=== PATIENT | female | born 1955 | race Caucasian/White ===

== ENCOUNTER 2017-03-11 07:23 | Emergency (ER) | payer OTHER ==
[2017-03-11 07:29] VITALS: O2SAT 95
--- NOTE | 2017-03-11 07:39 | EDPHY ---
H & P Stated Complaint: Poss insect bite R eyelid; swelling x 2 days Time Seen by Provider: 03/11/17 07:38 - Personal History Current Tetanus Diphtheria and Acellular Pertussis (TDAP): Unsure - Medical/Surgical History Hx Asthma: No Hx Chronic Respiratory Disease: No Hx Diabetes: No Hx Cardiac Disease: No Hx Renal Disease: No Hx Cirrhosis: No Hx Alcoholism: No Hx HIV/AIDS: No Hx Splenectomy or Spleen Trauma: No Other PMH: Med hx-insomnia,depression,seizure, encephalitis in 1974. Surg-cyst to tailbone,ovaries - Social History Smoking Status: Current every day smoker Constitutional: Initial Vital Signs Temperature (C) 37 C 03/11/17 07:25 Heart Rate 65 03/11/17 07:25 Respiratory Rate 16 03/11/17 07:25 Blood Pressure 110/72 03/11/17 07:25 O2 Sat (%) 95 03/11/17 07:25 O2 Delivery Mode Room Air Allergies/Adverse Reactions: No Known Allergies Allergy (Verified 03/11/17 07:24) Home Medications: Medication Instructions Recorded QUEtiapine FUMARATE 01/20/16 Eszopiclone 08/27/16 FLUoxetine 08/27/16 Lamotrigine 08/27/16 Ofloxacin 0.3% [Ocuflox 0.3%] 2 drops OP QID #1 opht.btl 03/11/17 Medical Decision Making ED Course/Re-evaluation: CHIEF COMPLAINT: Swollen right eyelid HISTORY OF PRESENT ILLNESS: This patient is a 61 year old female complaining of painful, swollen right eyelid worsening over the last two days. Two days ago, she states she developed pain above her right eye, and yesterday noted the eyelid had become swollen and red. She denies changes in vision or discharge from the eye. She denies fever, vomiting, diarrhea, headache, or other associated symptoms. REVIEW OF SYSTEMS: A 10 point review of systems was performed and is negative with the exception of the elements mentioned in the history of present illness. PHYSICAL EXAM: HR, BP, O2 Sat, RR. Temp noted General Appearance: Alert, well hydrated, appropriate, and non-toxic appearing. Head: Atraumatic without scalp tenderness or obvious injury Eyes: Meibomian gland cyst, erythema and edema to upper lid. Pupils equal, round , reactive to light and accommodation, EOMI, no trauma, no injection. Ears: Clear bilaterally, no perforation, normal landmarks Nose: Atraumatic, no rhinorrhea, clear. Throat: Mucus membranes moist. Neck: Supple, nontender Respiratory: No retractions, no distress, no wheezes, and no accessory muscle use. Cardiovascular: Regular rate and rhythm. Good capillary refill all extremities. Gastrointestinal: Abdomen is soft, nontender, non-distended. Musculoskeletal: Normal active ROM of all extremities, atraumatic. Neurological: Alert, appropriate, and interactive. Nonfocal neuro exam. Skin: No rashes, good turgor, no nodules on palpation. Past medical history: Herpes encephalitis, tempora lobe damage, kidney stones, history of seizures, osteoporosis Past surgical history: Ovarian surgery, tailbone cyst removal Family history: Noncontributory Social history: Lives in [place]. DIFFERENTIAL DIAGNOSIS: Includes but not limited to: meibomian gland cyst, blepharitis, stye. MEDICAL DECISION MAKING: This patient is a 61 year old female presenting with swollen erythematous upper right eyelid onset two days ago. Physical exam reveals meibomian gland cyst to the upper right eyelid. Plan to discharge home in good condition with prescription for Ocuflox drops. Followup and return precautions discussed. The patient is comfortable with this plan. Departure - Departure Disposition: Home, Routine, Self-Care Clinical Impression: Meibomian cyst Qualifiers: Laterality: right Eyelid: upper Qualified Code(s): H00.11 - Chalazion right upper eyelid Condition: Good Instructions: Lisa (ED) Additional Instructions: 1. Use your Ocuflox antibiotic eye drops in your affected eye as prescribed. It is important that you finish your entire course of antibiotics. 2. You may take 200-400mg of ibuprofen every 6-8 hours with food or 650mg Tylenol every 4-6 hours to reduce discomfort. 3. Follow up with your primary care provider or symptoms unresolved in the next 3-5 days. 4. Return to the Emergency Department if you develop changes in your vision, redness of discharge of your eye, or other worsening of condition. Referrals: Gisele Gómez MD [Primary Care Provider] - As per Instructions Prescriptions: Ofloxacin 0.3% [Ocuflox 0.3%] 2 drops OP QID #1 opht.btl Report Scribed for: Kilo A Sofia Report Scribed by: Megha Delvalle Date of Report: 03/11/17 Time of Report: 07:44
[2017-03-11 08:24] VITALS: BP 112/67; PULSE 81; RESP 18; TEMP 97.9
== END 2017-03-11 08:24 | disposition home or self-care (01) ==
DX: H00.11 Chalazion right upper eyelid (principal); F17.200 Nicotine dependence, unspecified, uncomplicated

== ENCOUNTER 2017-05-11 00:11 | Emergency (ER) | payer OTHER ==
[2017-05-11] MEDS ORDERED: HYDROCOD/APAP 5/325 PREPACK#6 BTL TAKEHOME ONE (00:52)
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
[2017-05-11 01:14] VITALS: BP 145/81; PULSE 78; RESP 14; TEMP 97.7; O2SAT 99
== END 2017-05-11 01:05 | disposition home or self-care (01) ==
LOC: CED 00:11
PROC: 3E0X3CZ (ICD-10-PCS; principal; 2017-05-11)
DX: K08.89 Other specified disorders of teeth and supporting structures (principal); F17.200 Nicotine dependence, unspecified, uncomplicated

== ENCOUNTER 2017-06-09 15:24 | Emergency (ER) | payer OTHER ==
[2017-06-09 15:38] VITALS: BP 119/57; PULSE 80; RESP 16; TEMP 99; O2SAT 97
[2017-06-09 15:43] LABS: COLOR YELLOW; LEUKOCYTE ESTERASE,URINE 2+ (NEGATIVE); NITRITE,URINE NEGATIVE (NEGATIVE); PH,URINE 6.5 (5.0-7.5)
[2017-06-09 15:52] LABS: BACTERIA 2+ /hpf (NONE SEEN); MUCUS 1+ /lpf (NONE-1+); RBC,URINE 50-182 /hpf (0-3); WBC,URINE 15-25 /hpf (0-3)
--- NOTE | 2017-06-09 15:55 | EDPHY ---
H & P Time Seen by Provider: 06/09/17 15:31 HPI/ROS: 61-year-old female presents complaining of burning with urination x1 day. Review of systems As per HPI General no fever no chills no weakness HEENT no eye pain no eye discharge. No eye redness, no sore throat Respiratory no cough, no shortness of breath Cardiac no chest pain, no peripheral edema GI no abdominal pain, no diarrhea, no constipation, no nausea, no vomiting no flank pain, no hematuria, positive dysuria Musculoskeletal no myalgias, no joint pain Heme no easy bruising, no easy bleeding Endo no polyuria, no polydipsia Skin no rashes, no pruritus Neuro no syncope, no dizziness, no headaches Psych is no suicidal ideation, no homicidal ideation Past Medical/Surgical History: Depression Social History: Denies alcohol or drug use Smoking Status: Current every day smoker Physical Exam: 61-year-old female Female alert and oriented in no acute distress nontoxic appearance, afebrile Atraumatic normocephalic Neck supple Lungs clear to auscultation bilaterally Heart regular rate and rhythm Abdomen normoactive bowel sounds soft mild suprapubic tenderness no guarding no rebound Back no CVA tenderness Extremities no cyanosis clubbing or edema Skin no rash Constitutional: Initial Vital Signs Temperature (C) 37.2 C 06/09/17 15:37 Heart Rate 80 06/09/17 15:37 Respiratory Rate 16 06/09/17 15:37 Blood Pressure 119/57 L 06/09/17 15:37 O2 Sat (%) 97 06/09/17 15:37 O2 Delivery Mode Room Air Allergies/Adverse Reactions: No Known Allergies Allergy (Verified 06/09/17 15:36) Home Medications: Medication Instructions Recorded QUEtiapine FUMARATE 01/20/16 Eszopiclone 08/27/16 FLUoxetine 08/27/16 Lamotrigine 08/27/16 Cephalexin 500 mg PO TID #14 tablet 06/09/17 Phenazopyridine HCl 200 mg PO TID #6 tab 06/09/17 [Phenazopyridine] Medical Decision Making ED Course/Re-evaluation: Patient seen and evaluated for dysuria Urinalysis positive for WBC, RBC, bacteria, nitrate and leuk esterase Impression UTI Plan Cephalexin, peridium, PCP - Data Points Laboratory Results: 06/09/17 15:35 Urine Color YELLOW Urine Appearance HAZY Urine pH 6.5 (5.0-7.5) Ur Specific [place] 1.020 (1.002-1.030) Urine Protein TRACE H (NEGATIVE) Urine Ketones NEGATIVE (NEGATIVE) Urine Blood 3+ H (NEGATIVE) Urine Nitrate NEGATIVE (NEGATIVE) Urine Bilirubin NEGATIVE (NEGATIVE) Urine Urobilinogen 1.0 EU EU (0.2-1.0) Ur Leukocyte Esterase 2+ H (NEGATIVE) Urine RBC 50-182 /hpf H /hpf (0-3) Urine WBC 15-25 /hpf H /hpf (0-3) Ur Epithelial Cells TRACE /lpf /lpf (NONE-1+) Urine Bacteria 2+ /hpf H /hpf (NONE SEEN) Urine Mucus 1+ /lpf /lpf (NONE-1+) Urine Glucose NEGATIVE (NEGATIVE) Departure - Departure Disposition: Home, Routine, Self-Care Clinical Impression: Urinary tract infection Condition: Good Instructions: Urinary Tract Infection in Women (ED) Referrals: Gisele Gómez MD [Primary Care Provider] - As per Instructions Prescriptions: Cephalexin 500 mg PO TID #14 tablet Phenazopyridine HCl [Phenazopyridine] 200 mg PO TID #6 tab
== END 2017-06-09 16:06 | disposition home or self-care (01) ==
LOC: CED 15:24
DX: N39.0 Urinary tract infection, site not specified (principal); B96.89 Other specified bacterial agents as the cause of diseases classified elsewhere; F17.200 Nicotine dependence, unspecified, uncomplicated
CPT/HCPCS: 81003-PO; 81015-PO

== ENCOUNTER 2017-08-04 10:49 | Emergency (ER) | payer OTHER ==
--- NOTE | 2017-08-04 10:54 | EDPHY ---
H & P Time Seen by Provider: 08/04/17 10:50 HPI/ROS: CHIEF COMPLAINT: "I have a bladder infection " HISTORY OF PRESENT ILLNESS: This is a 61-year-old female with history of bladder infections who presents with dysuria, urgency, and frequency that began yesterday. These symptoms have increased since their onset. She denies fever or back pain. She has not had vomiting or diarrhea. She is not experiencing abdominal pain. REVIEW OF SYSTEMS: A ten point review of systems was performed and is negative with the exception of the items mentioned in the HPI. Past medical history: Herpes encephalitis in 1973 Past surgical history: Removal of skin cancer from left leg Meibomian cyst removal Social history: No tobacco use. She is single. She is disabled. General Appearance: Alert. Vital signs reviewed. Heart rate 103 at triage. Eyes: Pupils equal and round, no conjunctival injection, no discharge. Anicteric. Respiratory: Lungs are clear to auscultation; no wheezes, rales, or rhonchi. Cardiovascular: Regular rate and rhythm; no murmur, rub, or gallop. Not tachycardic at time of my exam. Gastrointestinal: Abdomen is soft and nontender, no masses or organomegaly, bowel sounds normal. Skin: Warm and dry, no rashes on exposed skin, normal color. Back: Nontender to palpation over the thoracolumbar spine. No CVAT. Extremities: No lower extremity edema, no calf tenderness or swelling. Neurological: Alert and oriented. Moving all four extremities easily and equally. Psychiatric: Normal affect. - Medical/Surgical History Hx Asthma: No Hx Chronic Respiratory Disease: No Hx Diabetes: No Hx Cardiac Disease: No Hx Renal Disease: No Hx Cirrhosis: No Hx Alcoholism: No Hx HIV/AIDS: No Hx Splenectomy or Spleen Trauma: No Other PMH: Med hx-insomnia,depression,seizure, encephalitis in 1974. Surg-cyst to tailbone,oophrectomy. - Social History Smoking Status: Current every day smoker Constitutional: Initial Vital Signs Temperature (C) 37 C 08/04/17 10:59 Heart Rate 103 H 08/04/17 10:59 Respiratory Rate 16 08/04/17 10:59 Blood Pressure 109/70 08/04/17 10:59 O2 Sat (%) 94 08/04/17 10:59 O2 Delivery Mode Room Air Allergies/Adverse Reactions: No Known Allergies Allergy (Verified 08/04/17 10:52) Home Medications: Medication Instructions Recorded QUEtiapine FUMARATE 01/20/16 Eszopiclone 08/27/16 FLUoxetine 08/27/16 Lamotrigine 08/27/16 Cephalexin 500 mg PO TID #14 tablet 06/09/17 Phenazopyridine HCl 200 mg PO TID #6 tab 06/09/17 [Phenazopyridine] Nitrofurantoin Macrobid [Macrobid] 100 mg PO BID #10 cap 08/04/17 Phenazopyridine HCl [Pyridium] 200 mg PO TID #6 tab 08/04/17 Medical Decision Making ED Course/Re-evaluation: Urinalysis is positive for leukocyte esterase, nitrates, blood, and bacteria. A CT In the past she has had E coli urinary tract infections that are pansensitive. I am prescribing nitrofurantoin 100 mg PO BID for five days. Return precautions reviewed. She will FU with her PCP as needed. Differential Diagnosis: I considered a differential diagnosis that includes but is not limited to urinary tract infection, pyelonephritis, ureterolithiasis, and appendicitis. - Data Points Laboratory Results: 08/04/17 11:00 Urine Color YELLOW Urine Appearance HAZY Urine pH 6.0 (5.0-7.5) Ur Specific [place] 1.025 (1.002-1.030) Urine Protein 1+ H (NEGATIVE) Urine Ketones NEGATIVE (NEGATIVE) Urine Blood 3+ H (NEGATIVE) Urine Nitrate POSITIVE H (NEGATIVE) Urine Bilirubin NEGATIVE (NEGATIVE) Urine Urobilinogen 0.2 EU EU (0.2-1.0) Ur Leukocyte Esterase 1+ H (NEGATIVE) Urine RBC >182 /hpf H /hpf (0-3) Urine WBC 25-50 /hpf H /hpf (0-3) Ur Epithelial Cells 1+ /lpf /lpf (NONE-1+) Amorphous Sediment 1+ /hpf /hpf (NONE-1+) Urine Bacteria 1+ /hpf H /hpf (NONE SEEN) Urine Mucus TRACE /lpf /lpf (NONE-1+) Urine Glucose NEGATIVE (NEGATIVE) Departure - Departure Disposition: Home, Routine, Self-Care Clinical Impression: Urinary tract infection Qualifiers: Urinary tract infection type: acute cystitis Hematuria presence: with hematuria Qualified Code(s): N30.01 - Acute cystitis with hematuria Condition: Good Instructions: Urinary Tract Infection in Women (ED) Referrals: Gisele Gómez MD [Primary Care Provider] - As per Instructions Prescriptions: Nitrofurantoin Macrobid [Macrobid] 100 mg PO BID #10 cap Phenazopyridine HCl [Pyridium] 200 mg PO TID #6 tab
[2017-08-04 11:05] VITALS: BP 109/70; PULSE 103; RESP 16; TEMP 98.6; O2SAT 94
[2017-08-04 11:10] LABS: LEUKOCYTE ESTERASE,URINE 1+ (NEGATIVE); NITRITE,URINE POSITIVE (NEGATIVE)
[2017-08-04 11:15] LABS: COLOR YELLOW
[2017-08-04 11:16] LABS: WBC,URINE 25-50 /hpf (0-3)
[2017-08-04 11:17] LABS: AMORPHOUS 1+ /hpf (NONE-1+); BACTERIA 1+ /hpf (NONE SEEN); MUCUS TRACE /lpf (NONE-1+); RBC,URINE >182 /hpf (0-3)
== END 2017-08-04 11:30 | disposition home or self-care (01) ==
LOC: CED 10:49
DX: N30.01 Acute cystitis with hematuria (principal); B96.89 Other specified bacterial agents as the cause of diseases classified elsewhere; F17.200 Nicotine dependence, unspecified, uncomplicated; Z85.828 Personal history of other malignant neoplasm of skin
CPT/HCPCS: 81003-PO; 81015-PO

== ENCOUNTER → 2018-01-15 | Outpatient (CLI) | payer OTHER | LOC: FIMAGING 09:51 | PROVIDERS: ATTEND Family Medicine | DX: Z13.820 Encounter for screening for osteoporosis (principal); M81.0 Age-related osteoporosis without current pathological fracture; Z79.899 Other long term (current) drug therapy; Z78.0 Asymptomatic menopausal state ==

== ENCOUNTER 2018-01-26 17:20 | Emergency (ER) | payer OTHER ==
[2018-01-26] MEDS ORDERED: CEPHALEXIN 500MG PREPACK#4 BTL TAKEHOME ONE (17:59)
--- NOTE | 2018-01-26 17:59 | EDPHY ---
H & P Time Seen by Provider: 01/26/18 17:39 HPI/ROS: Chief complaint. Burning with urination HPI. 62-year-old female with 1 day history of burning with urination urinary frequency and urgency. Symptoms are worse this afternoon. Suprapubic discomfort but no flank tenderness. No fever vomiting. Similar symptoms previously. No chest discomfort or trouble breathing. ROS Constitutional. no fever/chills, no weakness Eyes. no problems with vision ENT. no sore throat, no nasal drainage Cardiovascular. no chest pain Respiratory. no shortness of breath, no cough Abdominal. no abdominal pain, no nausea/vomiting, no diarrhea . Urinary frequency and dysuria MS. no calf pain/swelling, no neck/back pain, no joint pain Skin. no rash Lymph. no swollen glands Neuro. no headache, no dizziness, no difficulty walking or with speech Past Medical/Surgical History: UTI, herpes encephalitis, skin cancer Social History: Single, daily smoker, no alcohol Smoking Status: Current every day smoker Physical Exam: General Appearance: Alert pleasant well-developed female mild distress vital signs are stable Eyes: Pupils equal and round no pallor or injection. ENT, Mouth: Mucous membranes are moist. Respiratory: There are no retractions, lungs are clear to auscultation. Cardiovascular: Regular rate and rhythm. Gastrointestinal: Mild suprapubic tenderness. No flank tenderness. No masses Neurological: Awake and alert, sensory and motor exams grossly normal. Skin: Warm and dry, no rashes. Musculoskeletal: Neck is supple nontender. Extremities symmetrical, full range of motion. Psychiatric: Patient is oriented X 3, there is no agitation. Constitutional: Initial Vital Signs Temperature (C) 37 C 01/26/18 17:37 Heart Rate 78 01/26/18 17:37 Respiratory Rate 18 01/26/18 17:37 Blood Pressure 137/63 H 01/26/18 17:37 O2 Sat (%) 96 01/26/18 17:37 O2 Delivery Mode Room Air Allergies/Adverse Reactions: No Known Allergies Allergy (Verified 08/04/17 10:52) Home Medications: Medication Instructions Recorded QUEtiapine FUMARATE 01/20/16 Eszopiclone 08/27/16 FLUoxetine 08/27/16 Lamotrigine 08/27/16 Cephalexin 500 mg PO TID #14 tablet 06/09/17 Phenazopyridine HCl 200 mg PO TID #6 tab 06/09/17 [Phenazopyridine] Phenazopyridine HCl [Pyridium] 200 mg PO TID #6 tab 08/04/17 Cephalexin [Keflex (*)] 500 mg PO TID #14 cap 01/26/18 Phenazopyridine HCl [Pyridium] 200 mg PO TID #6 tab 01/26/18 Medical Decision Making ED Course/Re-evaluation: Urinalysis positive for evidence for UTI. Patient and I discussed laboratory evaluation, treatment plan including criteria for return importance of follow-up further evaluation. She expresses understanding and agreement. Pharmacies are now closed she will be given take-home of Keflex Differential Diagnosis: I considered urinary tract infection, sexually transmitted disease, pyelonephritis - Data Points Laboratory Results: 01/26/18 17:30 Urine Color ORANGE Urine Appearance HAZY Urine pH TNP Ur Specific [place] REJ Urine Protein TNP Urine Ketones TNP Urine Blood TNP Urine Nitrate TNP Urine Bilirubin TNP Urine Urobilinogen TNP Ur Leukocyte Esterase TNP Urine RBC 15-25 /hpf H /hpf (0-3) Urine WBC 25-50 /hpf H /hpf (0-3) Ur Epithelial Cells 1+ /lpf /lpf (NONE-1+) Urine Bacteria 1+ /hpf H /hpf (NONE SEEN) Urine Mucus 1+ /lpf /lpf (NONE-1+) Urine Yeast TRACE /hpf H /hpf (NONE SEEN) Urine Glucose TNP Departure - Departure Disposition: Home, Routine, Self-Care Clinical Impression: Urinary tract infection Qualifiers: Urinary tract infection type: acute cystitis Hematuria presence: with hematuria Qualified Code(s): N30.01 - Acute cystitis with hematuria Condition: Good Instructions: Urinary Tract Infection in Women (ED) Additional Instructions: Drink plenty of fluids and stay hydrated. Cephalexin 1 pill 3 times daily. Return for fever, flank pain, vomiting. Recheck in 2 days if not improved Referrals: Gisele Gómez MD [Primary Care Provider] - 2-3 days, if not improved Prescriptions: Cephalexin [Keflex (*)] 500 mg PO TID #14 cap Phenazopyridine HCl [Pyridium] 200 mg PO TID #6 tab
[2018-01-26 18:12] VITALS: BP 137/63
== END 2018-01-26 18:09 | disposition home or self-care (01) ==
LOC: CED 17:20
DX: N30.01 Acute cystitis with hematuria (principal); B96.89 Other specified bacterial agents as the cause of diseases classified elsewhere; F17.200 Nicotine dependence, unspecified, uncomplicated; Z85.828 Personal history of other malignant neoplasm of skin
CPT/HCPCS: 81003-PO; 81015-PO

== ENCOUNTER 2018-02-24 17:59 | Emergency (ER) | payer OTHER ==
[2018-02-24] MEDS ORDERED: PHENAZOPYRIDINE HCL 200 MG TAB PO ONE (19:05)
[2018-02-24] MEDS ORDERED: PROPARACAINE 0.5% 15 ML OPHT DROP ONE (19:16)
[2018-02-24] MEDS ORDERED: PROPARACAINE/FLUORESCEIN SOD 5 ML OPHT.BTL ONE (19:43)
--- NOTE | 2018-02-24 19:43 | EDPHY ---
H & P Time Seen by Provider: 02/24/18 18:54 HPI/ROS: This patient complains of dysuria, frequency urgency a 24 hr duration similar to prior episodes of bladder infection. She states the symptoms are moderate intensity. She also complains of left ocular complaint of an ache to that I with increased tearing over the past few days. She has no other associated ocular symptoms and no other complaints. She came in by private vehicle for evaluation of the symptoms. ROS: Constitutional: No fevers or chills. HEENT: No trauma to her eye. No foreign body sensation. No vision change Cardiovascular: No complaints Neuro: No throbbing headache or generalized headache at all. No focal numbness tingling weakness. GI: No nausea vomiting : No hematuria. No flank pain. 7 point ROS is otherwise negative. Past Medical/Surgical History: Prior UTIs. Otherwise healthy Smoking Status: Current every day smoker Physical Exam: Physical Exam Vital signs are normal. General: No acute distress HEENT: Atraumatic. Eyes: Pupils equal and react to light. Extraocular motions are intact. No significant conjunctival injection is appreciated. Visual acuity is reviewed as per text documentation. Slit-lamp exam after proparacaine anesthesia reveals no corneal abnormalities. Fluorescein stain also with no corneal abnormalities. Lids and lashes appear normal. There is no cobblestoning of the inner eyelid when it is everted. No foreign bodies are noted. On optic funduscopic exam patient seems to have a bit of cupping of the optic nerve on the left side on my exam. Intra-ocular pressure with a Richie-Pen on the right is 10 on the left is 24 Richie-Pen was used after proparacaine anesthesia bilaterally. Lungs: No respiratory distress. Cardiac: Brisk capillary refill is intact throughout. Back: No CVA tenderness Abdomen: Soft, nontender except for minimal suprapubic tenderness. Skin: No rash or pallor. Neuro: Alert. Cranial nerves 2-12 intact. No focal deficits appreciated. Initial differential diagnosis: Cystitis, urethritis, ocular hypertension or early glaucoma Constitutional: Initial Vital Signs Temperature (C) 36.6 C 02/24/18 18:09 Heart Rate 78 02/24/18 18:09 Respiratory Rate 18 02/24/18 18:09 Blood Pressure 127/62 H 02/24/18 18:09 O2 Sat (%) 96 02/24/18 18:09 O2 Delivery Mode Room Air Allergies/Adverse Reactions: No Known Allergies Allergy (Verified 08/04/17 10:52) Home Medications: Medication Instructions Recorded Nitrofurantoin Macrobid [Macrobid 100 mg PO BID #10 cap 02/24/18 100 mg (RX)] Phenazopyridine HCl [Pyridium 200 mg PO TID PRN #6 tab 02/24/18 200mg (RX)] MDM/Departure - MDM Medications Given: Discontinued Medications Phenazopyridine HCl (Pyridium) 200 mg PO EDNOW ONE Stop: 02/24/18 19:06 Last Admin: 02/24/18 19:18 Dose: 200 mg ED Course/Re-evaluation: Studies: Urine dip reveals leukocytes, RBCs. Patient is unable to give 2nd urine sample to send for urinalysis at the hospital or culture. But given her classic symptoms and mild dip findings will treat her for cystitis. In terms of her ocular symptoms-she has ocular hypertension. Discussed this with the on-call wig sales consultant Dr. Gutierrez would like to see the patient in his office within next 2 days for further evaluation. No specific treatment needs to be initiated this time per his consultation. - Depart Disposition: Home, Routine, Self-Care Clinical Impression: Cystitis, Ocular hypertension of left eye Condition: Good Instructions: Urinary Tract Infection in Women (ED) Additional Instructions: Diagnosis: 1. Bladder infection 2. Ocular hypertension-left eye You may have early glaucoma left eye based on today's examination. Plan: For the bladder infection take the Macrobid and the peridium as prescribed. Drink plenty fluids For eye, call Dr. Dayna bourne [facility]-wig sales consultant tomorrow morning and asked to speak with [facility] practice management consultant to arrange for follow-up appointment for sometime within the next 1-2 days for further evaluation. Tylenol if needed for mild eye discomfort. Return emergency department if he developed significant worsening of eye discomfort, onset of vision change or other concerns. Prescriptions: Nitrofurantoin Macrobid [Macrobid 100 mg (RX)] 100 mg PO BID #10 cap Phenazopyridine HCl [Pyridium 200mg (RX)] 200 mg PO TID PRN #6 tab PRN Reason: dysuria Referrals: Gisele Gómez MD [Primary Care Provider] - As per Instructions Yeyo Gutierrez MD [Medical Doctor] - As per Instructions
[2018-02-24 20:08] VITALS: BP 132/76
== END 2018-02-24 20:11 | disposition home or self-care (01) ==
LOC: CED 17:59
DX: N30.90 Cystitis, unspecified without hematuria (principal); F17.200 Nicotine dependence, unspecified, uncomplicated; H40.052 Ocular hypertension, left eye

== ENCOUNTER → 2018-11-18 | Outpatient (CLI) | payer OTHER | LOC: CIMAGING 12:45 | PROVIDERS: ATTEND Family Medicine | DX: R07.81 Pleurodynia (principal); H53.9 Unspecified visual disturbance | CPT/HCPCS: 71100-PO ==